=== PATIENT | female | born 1965 | race Two or more races ===

== ENCOUNTER 2019-10-25 07:24 | Outpatient (CLI) | payer OTHER | END 2019-10-25 07:26 | disposition home or self-care (01) | LOC: SONOGRAMA 07:24 | DX: E07.89 Other specified disorders of thyroid (principal) ==

== ENCOUNTER 2019-10-27 08:40 | Emergency (ER) | payer OTHER ==
[~2019-10-27] VITALS: Ht 160 cm; Wt 94.3 kg
[2019-10-27] MEDS ORDERED: LEVOTHYROXINE25 MCG (09:19)
[2019-10-27] MEDS ORDERED: COZAAR50 MG (09:19)
== END 2019-10-27 13:02 | disposition home or self-care (01) ==
LOC: ER 08:40
DX: K80.20 Calculus of gallbladder without cholecystitis without obstruction (principal); R10.11 Right upper quadrant pain